=== PATIENT | female | born 1950 | race Caucasian/White ===

== ENCOUNTER 2023-09-14 06:20 | Inpatient (IN) | payer MEDICARE, SELFPAY ==
--- NOTE | 2023-08-19 09:44 | CM ---
Patient is scheduled for an elective R THR on 09/14/23. Spoke with patient prior to surgery via telephone. Patient had a R TKR at in 2017. Reintroduced role of Orthopedic Navigator. Patient reports that she lives alone in a two story home. There
is a one step to enter and a flight of steps to the second floor. There is a powder room on the mid level developer. She currently functions independently. She has a cane, two rolling walkers, raised toilet seat, grabber and firm cushion. She has had VN
services through [facility]. PCP is Christ Armstrong.
Discussed orthopedic program and post surgical plans. Reviewed anticipated length of stay and that goal is for her to return home at discharge. Also reviewed outpatient PT. Patient is in agreement with tentative plan but will not have transportation
for outpatient PT. She has a neighbor who can provide some support but won't have anyone staying with her.
Patient will complete online education.
Plan: Orthopedic Navigator will remain available to assist with the care of patient and will reassess discharge needs after surgery.
[2023-08-24 13:25] VITALS: BMI 25.3
[2023-08-24 13:44] LABS: Hematocrit 40.4 % (37.0-47.0); Hemoglobin 14.2 g/dL (12.0-16.0); Mean Corp Hgb Conc. 35.1 g/dL (33.0-37.0); Mean Corpuscular Hgb 33.3 pg (27.0-31.0); Mean Corpuscular Volume 94.6 fL (81.0-99.0); Mean Platelet Volume 7.9 fL (7.4-10.4); Platelet Count 318 10^3/uL (130-400); Red Blood Cell Count 4.27 10^6/uL (4.20-5.40); Red Cell Dist. Width 13.3 % (11.5-14.5); White Blood Cell Count 12.6 10^3/uL (4.8-10.8)
[2023-08-24 14:30] LABS: Glycohemoglobin (HgbA1c) 5.6 % (4.0-5.6)
[2023-08-24 15:40] VITALS: BMI 25.3
[2023-09-14] VITALS (21 sets, daily range): BP systolic 108–138; BP diastolic 52–78; PULSE 87; O2SAT 93
[2023-09-14] MEDS: CELEBREX 200 MG PO (07:51)
[2023-09-14] MEDS: TYLENOL 650 MG PO ×4 (07:51→23:34)
[2023-09-14] MEDS: VANCOCIN 200 IV ×2 (08:06→17:22)
[2023-09-14] MEDS: NORMOSOL-R 1000 IV (08:07)
[2023-09-14] MEDS: ULTRAM 50 MG PO ×2 (11:29→15:31)
[2023-09-14] MEDS: DILAUDID 0.25 MG IV ×2 (11:30→11:45)
[2023-09-14] MEDS: NSS 1000 IV (11:30)
--- NOTE | 2023-09-14 12:08 | W.PN.UPDATE ---
Update Note
Progress Note Update
R hip OA s/p R TABBY w/ Dr Barba 09/14/23
- s/p R TKA, 2017, by Dr Barba
DVT prophylaxis - ASA, b/l venous foot pumps
HTN - + parameters - monitor BP
GERD - resume Pepcid BID
MRSA + nasal screen - add IV Vanco in addition to IV Ancef for joint prophylaxis
- Will advise she continue nasal Mupirocin BID for 2 weeks post-surgery as incision heals
HLD
Osteoporosis
Chronic mild leukocytosis, asymptomatic
--- NOTE | 2023-09-14 13:15 | PTCARENOTE ---
received report from pacu, pt admitted to room 2109. pt oriented to room and unit. pt AAOX3. reports pain well controlled at this time. right hip aquacel CDI. Bilateral dp pulses palpable. PT/OT to see patient. pt updated on plan of care.
[2023-09-14] MEDS: NEURONTIN 200 MG PO ×2 (15:26→21:50)
[2023-09-14] MEDS: ANCEF 5 IV ×2 (15:26→23:34)
[2023-09-14] MEDS: TYLENOL PO (16:24)
[2023-09-14] MEDS: ASPIRIN 325 MG PO (17:22)
[2023-09-14] MEDS: DILAUDID 0.5 MG IV (17:27)
[2023-09-14] MEDS: COLACE 100 MG PO (20:39)
[2023-09-14] MEDS: SENOKOT 17.1999999999999993 MG PO (20:39)
[2023-09-14] MEDS: PEPCID 20 MG PO (20:39)
[2023-09-14] MEDS: BACTROBAN 2% OINTMENT 1 APPLIC NASAL (20:39)
[2023-09-14] MEDS: DECADRON 4 MG PO (20:40)
[2023-09-14] MEDS: ZOFRAN 4 MG IV (23:49)
[2023-09-15 02:59] VITALS: BP 118/60
[2023-09-15] MEDS: TYLENOL 650 MG PO ×2 (03:28→07:50)
[2023-09-15 06:38] VITALS: BP 123/66
[2023-09-15] MEDS: ASPIRIN 325 MG PO (07:49)
[2023-09-15] MEDS: ORETIC 12.5 MG PO (07:49)
[2023-09-15] MEDS: PEPCID 20 MG PO (07:50)
[2023-09-15] MEDS: BACTROBAN 2% OINTMENT 1 APPLIC NASAL (07:50)
[2023-09-15] MEDS: SENOKOT 17.1999999999999993 MG PO (07:50)
[2023-09-15] MEDS: NEURONTIN 200 MG PO (07:50)
[2023-09-15] MEDS: CRESTOR 20 MG PO (07:50)
[2023-09-15] MEDS: DECADRON 4 MG PO (07:50)
[2023-09-15] MEDS: MOBIC 15 MG PO (07:50)
[2023-09-15] MEDS: COLACE 100 MG PO (07:50)
--- NOTE | 2023-09-15 08:43 | CM ---
Addendum entered by Faustina Bray 09/15/23 10:05:
Patient did well in therapy. She has no concerns about going home.
Original Note:
Reviewed chart and held rounds with PT, OT and nursing. Patient admitted as planned for elective R THR. Met with patient at bedside. Confirmed information previously obtained for assessment. Also discussed discharge plans. The plan is for patient to
return home at discharge. She will have support from a neighbor but no one will stay with her. Reviewed VN services including start of care (tentatively 09/15), services to be ordered (PT, OT, SN) and frequency/duration of services. Options list
provided and PAC data reviewed. Patient selects [facility].
Patient has a rolling walker, raised toilet seat, grabber, long handled shoe horn and a cane at home.
VN referral was completed and sent to [facility] through [facility] with request for start of care on 09/15. Confirmation received of their ability to accept case. blood bank booking clerk to fax discharge instructions to [facility] when complete.
Patient will use [facility] pharmacy for discharge prescriptions.
[2023-09-15 09:00] VITALS: BP 119/69; PULSE 80; O2SAT 99
[2023-09-15 10:07] VITALS: BP 114/54; PULSE 75; O2SAT 99
--- NOTE | 2023-09-15 10:51 | W.PN.ORTHO ---
Today's Communication / Plan
-
D/c today since clinically stable, did well w/ both PT and OT.
Assessment
.
Distal Motor Intact: Yes
Dressing:
Clean, dry and intact.
Assessment:
R hip OA s/p R TABBY w/ Dr Barba 09/14/23
- s/p R TKA, 2017, by Dr Barba
DVT prophylaxis - ASA, b/l venous foot pumps
PONV - likely d/t intolerance to opioids - will Rx Compazine TID upon d/c
- Tramadol over Oxycodone or [place] prn
HTN - + parameters - BPs stable
GERD - resumed Pepcid BID
MRSA + nasal screen - added IV Vanco in addition to IV Ancef for joint prophylaxis
- Will advise she continue nasal Mupirocin BID for 2 weeks post-surgery as incision heals
HLD
Osteoporosis
Chronic mild leukocytosis, asymptomatic
Plan
.
Surgery / Date: R TABBY w/ Dr Barba 09/14/23
DVT Prophylaxis: Aspirin
Activity:
Out of bed.
PT/OT
Discharge Plan: Home w/ VN
Subjective
.
.:
Patient resting comfortably in her chair this AM.
R hip pain well controlled w/ current pain meds.
N/V overnight - relief provided w/ Zofran prn.
Denies any other new complaints.
Eager for potential d/c today.
Vital Signs and Labs
.
Vital Signs and Labs:
Lab Results
08/24/23 13:04
Temp Pulse Resp BP Pulse Ox
97.9 F 83 20 123/66 99
09/15/23 06:38 09/15/23 06:38 09/15/23 06:38 09/15/23 06:38 09/15/23 06:38
Non-invasive Hgb result: 11.8
Physical Exam
-
HEENT: No pallor, cyanosis, or jaundice. Throat clear.
NECK: Supple. No JVD.
RESPIRATORY: Lungs clear to auscultation.
CVS: S1, S2 normal. RRR.�
ABDOMEN: Soft, non-tender. No distension.
EXTREMITIES: Strength equal, no calf pain with palpation/dorsiflexion. Calves soft.
ELECTRICAL SOFTWARE ENGINEER: AOx3. No focal deficits. warp tension tester grossly intact
--- NOTE | 2023-09-15 11:07 | W.DS.TRANS ---
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
-
Discharge Instructions:
Sleep Apnea Risk Low
Discharge Diagnosis/Procedures R hip OA s/p R TABBY w/ Dr Barba 09/14/23
Diet Other diet
Additional Diets Diabetic carb controlled x1 week for wound
healing/infection prevention; then resume
regular diet.
Activity As tolerated,With Walker
Driving Restrictions Not until seen by your Dr
Bathing Restrictions OK to Shower
Other Services VN,PT,OT
Wound Care Dressing to be removed 1 week post-surgery.
Instructions:
Stand-Alone Forms: Total Hip/Knee Replacement D/C
Changes to Home Medications: Yes
Discharge Medications:
DC Medications w/original date entered in [employer]
ascorbic acid (vitamin C) 500 mg tablet (Vitamin C) 1,200 mg PO DAILY Supplement 04/19/17
multivitamin (One Daily Multivitamin tablet) 1 ea PO DAILY Supplement 04/19/17
Citracal 630 mg PO DAILY Supplement 08/22/23
Fish Oil-Vit D3 750 mg PO BID Supplement 08/22/23
Probiotic 1 cap PO HS Supplement 08/22/23
famotidine 20 mg tablet 20 mg PO BID Gastrointestinal Issue 08/22/23
rosuvastatin 20 mg tablet (Crestor) 20 mg PO DAILY High Cholesterol 08/22/23
zoledronic acid 5 mg/100 mL in mannitol 5 %-water intravenous piggybck (Reclast) 5 mg IV [id number] Bisphosphonate Derivative;CANCER 08/22/23
acetaminophen 650 mg tablet,extended release (Tylenol Arthritis Pain) 1,300 mg (2 x 650 mg) PO Q8H #30 tabs 09/15/23
aspirin 325 mg tablet 325 mg PO DAILY #30 tabs 09/15/23
dexamethasone 4 mg tablet 4 mg PO BID #5 tabs 09/15/23
docusate sodium 100 mg capsule 100 mg PO BID #30 caps 09/15/23
gabapentin 100 mg capsule 200 mg (2 x 100 mg) PO TID 5 days #30 caps 09/15/23
hydrochlorothiazide 12.5 mg tablet 12.5 mg PO DAILY Fluid Retention/Swelling #0 tabs 09/15/23
meloxicam 15 mg tablet 15 mg PO DAILY #14 tabs 09/15/23
mupirocin 2 % topical ointment 1 applic intranasal BID #1 tube 09/15/23
prochlorperazine maleate 5 mg tablet 5 mg PO TID #30 tabs 09/15/23
sennosides 8.6 mg tablet (Senna Laxative) 17.2 mg (2 x 8.6 mg) PO BID #30 tabs 09/15/23
tramadol 50 mg tablet 50 - 100 mg (1 - 2 x 50 mg) PO Q6H PRN moderate-severe pain #30 tabs 09/15/23
Home Medication Changes
acetaminophen 650 mg tablet,extended release (Tylenol Arthritis Pain) 1,300 mg (2 x 650 mg) PO Q8H #30 tabs 09/15/23
aspirin 325 mg tablet 325 mg PO DAILY #30 tabs 09/15/23
dexamethasone 4 mg tablet 4 mg PO BID #5 tabs 09/15/23
docusate sodium 100 mg capsule 100 mg PO BID #30 caps 09/15/23
gabapentin 100 mg capsule 200 mg (2 x 100 mg) PO TID 5 days #30 caps 09/15/23
meloxicam 15 mg tablet 15 mg PO DAILY #14 tabs 09/15/23
prochlorperazine maleate 5 mg tablet 5 mg PO TID #30 tabs 09/15/23
sennosides 8.6 mg tablet (Senna Laxative) 17.2 mg (2 x 8.6 mg) PO BID #30 tabs 09/15/23
tramadol 50 mg tablet 50 - 100 mg (1 - 2 x 50 mg) PO Q6H PRN moderate-severe pain #30 tabs 09/15/23
Pending Results: No
[2023-09-15 11:35] VITALS: BP 132/60
[2023-09-15] MEDS: TYLENOL PO (12:17)
== END 2023-09-15 13:22 | disposition home health service (06) | DRG 470 ==
LOC: 2 SOUTH 06:20
PROVIDERS: ADMITTING PHYSICIAN Orthopaedic Surgery; FAMILY PHYSICIAN Family Medicine
PROC: 0SR9039 Replacement of Right Hip Joint with Ceramic Synthetic Substitute, Cemented, Open Approach (ICD-10-PCS; 2023-09-14)
DX: M16.11 Unilateral primary osteoarthritis, right hip (principal); I10 Essential (primary) hypertension; K21.9 Gastro-esophageal reflux disease without esophagitis; E78.5 Hyperlipidemia, unspecified; Z22.322 Carrier or suspected carrier of Methicillin resistant Staphylococcus aureus
CPT/HCPCS: 36415; 73502; 83036; 85027; 87070; 87147; 93005; 97110; 97116; 97162; 97166; 97530; 97535; C1713; C1776

== ENCOUNTER 2023-10-10 15:14 | Inpatient (IN) | payer MEDICARE, OTHER, SELFPAY ==
[2023-10-10] VITALS (26 sets, daily range): BP systolic 111–240; BP diastolic 51–193; BMI 24.4
--- NOTE | 2023-10-10 12:44 | ED.GENMED ---
History of Present Illness
General
Chief Complaint: Musculo-Skeletal Complaint
Source: patient and other (Best friend)
Time Seen by Provider: 10/10/23 12:30
Travel History
Have you had any contact with someone who has COVID-19?: No
Do you have any symptoms of coronavirus? Fever > 100 degrees, chills, cough, shortness of breath, sore throat, loss of taste or smell, muscle aches, or headache?: No
History of Present Illness
History of Present Illness:
This patient is a 73-year-old female presents emergency department after suspected dislocation of her right hip. She had a total hip done by Dr. Barba on September 13 which was uneventful. She has been recovering well at home. She lives in a
two-story house. She went upstairs at approximately 9:40 AM to take a shower, says that she bent down ever so slightly and felt a 'pop' and that it 'went out'. She went down to the ground but denies hitting her head or loss of consciousness. She
denies preceding symptoms such as chest pain, palpitations, etc. Unfortunately, she did not have access to a phone and was alone at the time. She gradually crawled downstairs and called for help. She presents to the ER now with come hip
discomfort, otherwise no complaints. No neck pain, headache, dizziness, chest pain, shortness of breath, or other complaints.
Past History
Past History
ED Past Medical History: Other (osteoarthritis, frequent UTIs)
ED Past Surgical History: Orthopedic
Social History
Tobacco: Non-smoker
Alcohol: None
Drug: None
Living: alone
Phy Exam
Physical Exam
Physical Exam:
GENERAL: Alert , in no apparent distress
EYE: pupils equal and reactive, no photophobia
NECK: Supple, no significant adenopathy.
ENT: o/p clr, mmm, no signs of head or facial injury noted.
CARDIAC: Regular rate and rhythm .
LUNGS: Clear breath sounds bilaterally, no acute respiratory distress, no wheezes/rales/rhonchi
ABDOMEN: Soft, without focal tenderness, no r/g, no cvat
NEUROLOGICAL: Alert and oriented, no focal neuro deficits
SKIN: Warm and dry, skin intact.
MUSCULOSKELETAL: No edema, well perfused. Resolving bruising noted about R lower leg. R le shortened and internal (sl) rotated, warm, well perfused, nl pulses, sesnation intact. Hip incision c/d/i and well healed
PSYCH: Normal and appropriate interaction.
Course
Orders/Labs/Results
Orders:
Orders
10/10/23 12:31
Hip, Right 2-3 Views [CR Hip - RT w/wo Pel 2-3 Vw*] Urgent
Comment:
Reason For Exam: 'pop' sound
Include a pelvis x-ray?: Yes
10/10/23 12:42
Morphine Sulfate 4 mg IV NOW STA
Ondansetron Injectable [Zofran] 4 mg IV NOW STA
10/10/23 12:43
Morphine Sulfate 4 mg .ROUTE .STK-MED ONE
Ondansetron Injectable [Zofran] 4 mg .ROUTE .STK-MED ONE
10/10/23 13:20
Propofol [Diprivan] 20 ml .ROUTE .STK-MED
10/10/23 13:55
Propofol [Diprivan] 20 ml .ROUTE .STK-MED
10/10/23 14:11
Hip, Right 1 View [CR Hip - RT without Pel 1 Vw] Urgent
Comment:
Reason For Exam: hip relocation
10/10/23 14:26
Dexamethasone Sod Phosphate [Decadron] 20 mg .ROUTE .STK-MED ONE
Fentanyl Citrate/Pf [Sublimaze] 100 mcg .ROUTE .STK-MED ONE
Lidocaine HCl/Pf [Xylocaine-Mpf 1% Vial] 50 mg .ROUTE .STK-MED ONE
Midazolam HCl [Versed] 2 mg .ROUTE .STK-MED ONE
Ondansetron Injectable [Zofran] 4 mg .ROUTE .STK-MED ONE
Propofol [Diprivan] 20 ml .ROUTE .STK-MED
Rocuronium Chauncey [Rocuronium] 50 mg .ROUTE .STK-MED ONE
10/10/23 14:39
Ketamine 5 ml .ROUTE .STK-MED
Vital Signs
Initial and Last Documented VS:
Initial Vital Signs
Temp Pulse Resp BP Pulse Ox
98.1 F 83 18 153/83 98
10/10/23 12:07 10/10/23 12:07 10/10/23 12:07 10/10/23 12:07 10/10/23 12:07
Last Documented Vital Signs
Temp Pulse Resp BP Pulse Ox
97.8 F 74 16 115/89 99
10/10/23 13:26 10/10/23 14:20 10/10/23 14:20 10/10/23 14:20 10/10/23 14:15
*Critical Care Note
Total Time (30-74mins, 75-104mins- exclusive of procedures): Not Applicable
Update Note
Update Note:
Patient presents to the Emergency Department with ___right hip suspected dislocation/'pop'
Number and Complexity of Problems Addressed at the Encounter
� Chronic conditions affecting care:
� Acute Exacerbation and/or Progression of Chronic Illness:
� Differential Diagnosis includes: Dislocation, fracture, strain, etc.
Amount and/or Complexity of Data to be Reviewed and Analyzed
� I performed an independent evaluation of and my interpretation is:
EKG:
CT:
Xrays:R hip dislocation
Laboratory Studies:
Other:
� Review of other/old records reveals:
� Clinical information was obtained by an independent historian:
� Prescriptions/Medications Considered but not given:
� Further testing considered but not performed:
Risk of Complications and/or Morbidity or Mortality of Patient Management
� Social determinants of health affecting care:
� Discussion with other providers (PCP, Hospitalists, Consultants, etc):
� Escalation of care including admission/observation vs risk of discharge considered:Text to Dr Villegas, confirm no contraindic to reduction by me in context of recent surgery. Reduction under procedural sedation performed by
myself with JOSE Burks...unable to do so. D/w Dr Villegas, he came to ED and attemptd reduction and also unsuccessful...pt brought to OR.
ED Attending Note
-
Portions of this chart may have been created with voice recognition software.� Occasional wrong word or��sound alike� substitutions may have occurred due to the inherent limitations of voice recognition software.
Discharge Plan
Departure
Patient Disposition: OR
Presentation/result/management discussed w/ accepting MD/DO: daniela
Condition: Good
Discharge Problem:
Dislocation, hip
Interventions
Interventions:
*Risk Screen - Suicide Last Done: 10/10/23 12:07
*General Assessment Last Done: 10/10/23 12:07
*Neglect/Abuse Screening Last Done: 10/10/23 12:07
ED- Fall Risk Assessment Last Done: 10/10/23 14:26
*ED COVID-19 Vaccine History Last Done: 10/10/23 12:07
*Nursing Disposition Last Done: 10/10/23 14:26
ED-Musculoskeletal Assessment Last Done: 10/10/23 12:07
Discharge Date and Time
Discharge Date/Time: 10/10/23 14:27
[2023-10-10] MEDS: MORPHINE SULFATE 4 MG IV (12:45)
[2023-10-10] MEDS: ZOFRAN 4 MG IV (12:45)
--- NOTE | 2023-10-10 15:40 | HPS.HSE ---
Addendum entered and electronically signed by Sanjiv Guadalupe MD 10/11/23 08:26:
Allergies
Allergy/AdvReac Type Severity Reaction Status Date / Time
adhesive tape Allergy blisters Verified 10/10/23 15:59
latex Allergy blisters Verified 10/10/23 12:09
meperidine [From Demerol] Allergy Severe Verified 10/10/23 15:59
Nausea/Vomiting
Home Medications
ascorbic acid (vitamin C) 500 mg tablet (Vitamin C) 1,200 mg PO DAILY Supplement 04/19/17
multivitamin (One Daily Multivitamin tablet) 1 ea PO DAILY Supplement 04/19/17
Citracal 630 mg PO DAILY Supplement 08/22/23
Fish Oil-Vit D3 750 mg PO BID Supplement 08/22/23
famotidine 20 mg tablet 20 mg PO BID Gastrointestinal Issue 08/22/23
rosuvastatin 20 mg tablet (Crestor) 20 mg PO DAILY High Cholesterol 08/22/23
zoledronic acid 5 mg/100 mL in mannitol 5 %-water intravenous piggybck (Reclast) 5 mg IV [id number] Bisphosphonate Derivative;CANCER 08/22/23
acetaminophen 650 mg tablet,extended release (Tylenol Arthritis Pain) 1,300 mg (2 x 650 mg) PO Q8H #30 tabs 09/15/23
aspirin 325 mg tablet 325 mg PO DAILY #30 tabs 09/15/23
dexamethasone 4 mg tablet 4 mg PO BID #5 tabs 09/15/23
hydrochlorothiazide 12.5 mg tablet 12.5 mg PO DAILY Fluid Retention/Swelling #0 tabs 09/15/23
meloxicam 15 mg tablet 15 mg PO DAILY #14 tabs 09/15/23
mupirocin 2 % topical ointment 1 applic intranasal BID #1 tube 09/15/23
tramadol 50 mg tablet 50 - 100 mg (1 - 2 x 50 mg) PO Q6H PRN moderate-severe pain #30 tabs 09/15/23
Original Note:
Family Physician
-
Family Physician: Christ Armstrong
Chief Complaint
-
R hip pain
History of Present Illness
73-year-old female who recently underwent left hip arthroplasty who is presenting from home and states today she had been now when she was about to go take a shower and ever so felt a pop and then it went out. Patient states she was on the ground
due to severe pain. Patient denies hitting her head or loss of consciousness syncopal episode. No chest pain or shortness of breath. Denies any palpitation prior to the event. Subsequently after which she went/crawled downstairs as her cell
phone was on the first floor. Patient called her neighbor who called 911. In the ER hip reduction was unsuccessful. Subsequently Dr. Villegas took patient to the OR under anesthesia for closed reduction. During the OR she was noted to have a
right periprosthetic fracture and thus will need to be admitted and undergo revision on 10/11.
Medical History
Past Medical History
Past Medical History: Reports Other
Additional Past Medical History:
Osteoarthritis status post right total knee and R hip arthroplasty Dr. Barba
Osteoporosis.
Gastroesophageal reflux disease.
Hypertension.
Hyperlipidemia.
Past Surgical History: Reports Other
Additional Past Surgical History:
Right total knee arthroplasty.
Right rotator cuff repair.
Left breast implantation.
Right knee chondroplasty.
Bunionectomy.
Ovary excision.
Breast biopsy.
Cataract.
Social History
Tobacco: Non-smoker
Drug: None
Living: Alone
Family History
Family History: Not pertinent
Allergies / Home Medications
Allergies reflects when Allergies were last updated in [employer].
Home Medications with original date entered in [employer]
Allergy/Medication List:
Medications on admission are unable to be verified or confirmed at this time.
Review of Systems
-
History Source: Patient
A 12 point ROS was completed and negative except as noted: Yes
Physical Exam
Vital Signs
Vital Signs
Temp Pulse Resp BP Pulse Ox
97.4 F 80 13 130/77 99
10/10/23 15:10 10/10/23 15:30 10/10/23 15:30 10/10/23 15:30 10/10/23 15:30
Physical Exam
General: Well Developed, Well Nourished and No Apparent Distress
HEENT: NormoCephalic, Moist mucous membranes and Atraumatic
Respiratory: Clear
Cardiac: S1/S2 and Regular Rhythm; No Murmur or Rub
GI: Soft, Non Tender, Non Distended and Normal Bowel Sounds; No Organomegaly
Rectal: Deferred by Provider
Musculoskeletal: No Clubbing, No Cyanosis and No Edema
Skin: No Rash
Neuro: Awake and Nonfocal/grossly intact
Psych: Calm
Impression/Plan
-
#Right periprosthetic fracture
#Right hip dislocation
#Right hip arthroplasty on 09/14/[address] Barba
Plan for surgery on 10/11. N.p.o. past midnight
Pain control
Bedrest for now
Therapy per orthopedic
DVT prophylaxis
Bowel regimen
CT right lower extremity ordered per orthopedic
Orthopedic consultation
#GERD
Continue with Pepcid
#Primary hypertension
Restart HCTZ depending on labs
DVT prophylaxis SCDs for now
d/w with orthopedic
I spent a total of 78 minutes with the patient or on the floor. More than 50% of this time involved counseling and coordination of care.
Home med rec pending
[2023-10-10] MEDS: DILAUDID 0.5 MG IV (15:53)
--- NOTE | 2023-10-10 16:44 | PTCARENOTE ---
Patient D/C to cat scan
[2023-10-10] MEDS: TYLENOL 650 MG PO ×2 (17:34→20:30)
[2023-10-10] MEDS: DILAUDID 0.25 MG IV ×2 (17:34→20:56)
--- NOTE | 2023-10-10 17:45 | PTCARENOTE ---
Pt arrived to 2S in bed. Full assessment completed. PRN dilaudid provided for c/o 9/10 R hip pain. RLE with + PD, warm, pink, +1 edema to R hip noted. Pure wick in place. Bed locked and in the lowest position, safety maintained. Oriented to room and
call singh.
[2023-10-10 18:15] LABS: % Basophils 0.5 % (0-2); % Eosinophils 0.9 % (0-6); % Immature Granulocytes 0.1 % (0-0.5); % Lymphocytes 19.2 % (20.5-51.1); % Monocytes 9.6 % (1.7-9.3); % Neutrophils 69.7 % (42.2-75.2); Absolute Eosinophils 0.1 10^3/uL (0-0.7); Absolute Lymphocytes 1.7 10^3/uL (1.2-3.4); Absolute Monocytes 0.8 10^3/uL (0.1-0.6); Hematocrit 35.8 % (37.0-47.0); Mean Corp Hgb Conc. 33.5 g/dL (33.0-37.0); Mean Corpuscular Hgb 32.5 pg (27.0-31.0); Mean Platelet Volume 7.8 fL (7.4-10.4); Nucleated Red Blood Cells % 0 %; Platelet Count 328 10^3/uL (130-400); Red Blood Cell Count 3.69 10^6/uL (4.20-5.40); Red Cell Dist. Width 13.6 % (11.5-14.5); White Blood Cell Count 8.6 10^3/uL (4.8-10.8)
[2023-10-10] MEDS: ROXICODONE 5 MG PO (18:34)
[2023-10-10 19:06] LABS: Blood Urea Nitrogen 13 mg/dl (7-17); Calcium 9.3 mg/dl (8.4-10.2); Carbon Dioxide 24 mmol/L (22-30); Chloride 102 mmol/L (98-107); Estimated Creatinine Clearance 72 ml/min; Glucose 99 mg/dl (70-99); Potassium 4.5 mmol/L (3.5-5.1); Sodium 134 mmol/L (135-145); eGFR > 60.00
[2023-10-10] MEDS: SENOKOT 17.1999999999999993 MG PO (20:55)
[2023-10-10] MEDS: COLACE 100 MG PO (20:55)
[2023-10-11] MEDS: TYLENOL PO (01:00)
[2023-10-11] MEDS: DILAUDID 0.25 MG IV ×2 (03:33→07:59)
[2023-10-11] MEDS: TYLENOL 650 MG PO ×5 (03:33→20:49)
[2023-10-11 07:00] VITALS: BP 118/61
[2023-10-11 07:03] LABS: Hepatitis C Antibody Negative (Negative)
--- NOTE | 2023-10-11 07:32 | CON.ORTHO ---
Consultation
-
Date/Time Consultation Requested: 10/10/23
Date/Time Consultation Performed: 10/11/23 @ 7:15am
Requesting Provider: ER physician
Performing Provider: Yamel Toscano PA-C for González Barba MD
Reason for Consultation: right periprosthetic hip fracture, right TABBY dislocation
Consultation - Orthopedics
History
HPI: 73yo female admitted to [facility] for right hip pain. She underwent right TABBY on 09/14/[address] Barba. She had been recovering well at home. Yesterday morning, she was in the shower when she bent slightly and felt a pop in her
right hip followed by immediate pain. She was unable to bear weight and lowered herself to the floor. She denies falling. She was able to scoot herself across the floor to get to her phone to call for help. EMS brought her to [place] [facility] for
further evaluation. Xrays revealed right TABBY dislocation. Reduction was attempted in the ED and unsuccessful. She was taken to the operating room where second reduction attempted. Post reduction xrays and right lower extremity CT scan reveal
continues right TABBY dislocation as well as periprosthetic femur fracture. This morning, she endorses pain about the right hip and thigh. She is taking pain medications regularly. She denies numbness/tingling. She is not on any blood thinners.
PAST MEDICAL HISTORY: osteoarthritis, GERD, HTN, HLD
PAST SURGICAL HISTORY: Right TABBY 09/14/[address] Barba, right TKA, right rotator cuff repair, bunionectomy, ovary excision, breast biopsy, cataract
SOCIAL HISTORY: denies tobacco, alcohol
FAMILY HISTORY: Non contributory
REVIEW OF SYSTEMS: 12 point review of systems obtained and negative except those mentioned in the HPI
Allergies / Home Medications
Allergy/AdvReac Type Severity Reaction Status Date / Time
adhesive tape Allergy blisters Verified 10/10/23 15:59
latex Allergy blisters Verified 10/10/23 12:09
meperidine [From Demerol] Allergy Severe Verified 10/10/23 15:59
Nausea/Vomiting
�Medication �Instructions �Recorded
ascorbic acid (vitamin C) 500 mg 1,200 mg PO DAILY Supplement 04/19/17
tablet (Vitamin C)
multivitamin (One Daily 1 ea PO DAILY Supplement 04/19/17
Multivitamin tablet)
Citracal 630 mg PO DAILY Supplement 08/22/23
Fish Oil-Vit D3 750 mg PO BID Supplement 08/22/23
Probiotic 1 cap PO HS Supplement 08/22/23
famotidine 20 mg tablet 20 mg PO BID Gastrointestinal Issue 08/22/23
rosuvastatin 20 mg tablet (Crestor) 20 mg PO DAILY High Cholesterol 08/22/23
zoledronic acid 5 mg/100 mL in 5 mg IV [id number] Bisphosphonate 08/22/23
mannitol 5 %-water intravenous Derivative;CANCER
piggybck (Reclast)
acetaminophen 650 mg 1,300 mg (2 x 650 mg) PO Q8H #30 09/15/23
tablet,extended release (Tylenol tabs
Arthritis Pain)
aspirin 325 mg tablet 325 mg PO DAILY #30 tabs 09/15/23
dexamethasone 4 mg tablet 4 mg PO BID #5 tabs 09/15/23
docusate sodium 100 mg capsule 100 mg PO BID #30 caps 09/15/23
gabapentin 100 mg capsule 200 mg (2 x 100 mg) PO TID 5 days 09/15/23
#30 caps
hydrochlorothiazide 12.5 mg tablet 12.5 mg PO DAILY Fluid 09/15/23
Retention/Swelling #0 tabs
meloxicam 15 mg tablet 15 mg PO DAILY #14 tabs 09/15/23
mupirocin 2 % topical ointment 1 applic intranasal BID #1 tube 09/15/23
prochlorperazine maleate 5 mg 5 mg PO TID #30 tabs 09/15/23
tablet
sennosides 8.6 mg tablet (Senna 17.2 mg (2 x 8.6 mg) PO BID #30 09/15/23
Laxative) tabs
tramadol 50 mg tablet 50 - 100 mg (1 - 2 x 50 mg) PO Q6H 09/15/23
PRN moderate-severe pain #30 tabs
Vital Signs / Lab Results
Temp Pulse Resp BP Pulse Ox
98.3 F 95 17 111/51 98
10/10/23 23:45 10/10/23 23:45 10/10/23 23:45 10/10/23 23:45 10/10/23 23:45
10/10/23 17:45
10/10/23 17:45
RADIOGRAPHIC FINDINGS:
Intraop Images: Superior dislocation of the femoral prosthesis relative to the acetabular cup. Fracture of the greater trochanter with mild displacement.
Right Lower Extremity CT Scan: Vertically oriented fracture through the base of the right greater trochanter, with approximately 9 mm posterolateral displacement. Subtle nondisplaced fracture involving the posterior column. Femoral prosthesis
dislocated superior and lateral to the acetabular cup. The femoral prosthesis head is projecting in an anterolateral direction. It is uncertain if this represents rotation of the femoral component, femoral rotation, or a combination of both. The
acetabular cup remains in place and appears intact.
PHYSICAL EXAM:
General: no acute distress
HEENT: NCAT, sclera anicteric, normal hearing
Heart: No JVD
Lungs: Normal work of breathing on room air
MSK: Focused exam of right hip. Right leg shortened and internally rotated. +Tenderness about the hip and thigh. ROM deferred. Calf soft and nontender. Able to dorsiflex/plantarflex the ankle. NVI distally
Assessment / Plan
ASSESSMENT: Right total hip dislocation, right periprosthetic fracture
PLAN: Unfortunately, Ms. Echeverria has sustained a right prosthetic hip dislocation. This was unsucessfully reduced. She also has a right periprosthetic fracture. Will require revision right total hip arthroplasty. Discussed the operative and
nonoperative options. The risks, benefits, and complications were reviewed. She has agreed to proceed with surgery. Will plan for right revision total hip arthroplasty tomorrow, 10/12/23, under the direction of Dr. Barba. Surgical and blood consent
obtained and placed on chart. She will need to be NPO after midnight. Ancef and TXA oracle ascp consultant to OR. Type and screen ordered today. She is to remain on bedrest for now. Continue with pain control as needed. She will require PT evaluation
postoperatively. Will continue to follow along.
[2023-10-11] MEDS: COLACE 100 MG PO ×2 (08:02→20:49)
[2023-10-11] MEDS: SENOKOT 17.1999999999999993 MG PO ×2 (08:02→20:49)
[2023-10-11] MEDS: ROXICODONE 5 MG PO (10:08)
--- NOTE | 2023-10-11 10:32 | CM ---
Reviewed the chart notes and spoke with the patient at the bedside. Patient had THR 09/14/2023 and was discharged to home with [facility]. The patient anticipated going to OR tomorrow for right revision total hip arthroplasty tomorrow. [facility]
closed the patient last week. The patient resides alone in a two story home with one step to enter. The patient has a rolling walker, cane, built in shower seat, raised toilet seat, and a grabber. The patient has not been to a SNF/rehab in the
past. CM continues to be available to patient/family and is monitoring medical plan for needs at discharge.
Plan: Discharge plans will depend on the patient's progress.
[2023-10-11] MEDS: DILAUDID 0.5 MG IV ×2 (12:19→20:48)
[2023-10-11] MEDS: COMPAZINE 10 MG IV ×2 (12:19→20:49)
--- NOTE | 2023-10-11 12:27 | W.PN.HOSP.TC ---
Today's Communication/Plan
-
N.p.o. past midnight for OR tomorrow
Pain control
Assessment / Plan
Assessment / Plan
#Right periprosthetic fracture
#Right hip dislocation
#Right hip arthroplasty on 09/14/[address] Barba
Plan for surgery on 10/11. N.p.o. past midnight
Pain control
Bedrest for now
Therapy per orthopedic post op
DVT prophylaxis
Bowel regimen
CT right lower extremity ordered per orthopedic-vertically oriented fracture through the base of the right greater trochanter, with approximately 9 mm posterior lateral displacement. Subtle nondisplaced fracture involving the posterior column.
Femoral prosthesis dislocated superior and lateral to the acetabular cup. The femoral prosthesis head is projecting in an anterolateral direction. It is uncertain if this represents rotation of the femoral component, femoral rotation, or a
combination of both. The acetabular cup remains in place and appears intact.
#GERD
Continue with Pepcid
#Primary hypertension
Hold HCTZ for now
DVT prophylaxis SCDs for now and hold asa per orthopedic
d/w with orthopedic
Anticipated Discharge: > 48 hours
Subjective/Interval History
-
Date of Service: October 11, 2023
states of severe R hip pain
Objective Data
-
Vital Signs:
Vital Signs
Temp Pulse Resp BP Pulse Ox
98.0 F 83 18 118/61 98
10/11/23 07:00 10/11/23 07:00 10/11/23 07:00 10/11/23 07:00 10/11/23 08:00
I&O
10/10/23 10/11/23 10/12/23
06:59 06:59 06:59
Intake Total 870 / 870
Output Total 675 / 675
Balance 195 / 195
Physical Exam
-
General: Well Developed, Appears in Distress and Pain
HEENT: Normocephalic, Atraumatic and Moist Mucous Membranes
Respiratory: Clear to Auscultation
Cardiac: Regular Rhythm and S1/S2; Negative Murmur, Rub or Gallop
GI: Soft, Nontender, Nondistended and Normal Bowel Sounds; Negative Organomegaly
Rectal: Deferred by Provider
Musculoskeletal: No Clubbing, No Cyanosis and No Edema
Skin: Negative Rash
Neuro: Awake and Nonfocal/Grossly Intact
Psych: Calm
[2023-10-11 14:27] VITALS: BP 137/69
[2023-10-11 15:00] VITALS: BP 137/69
[2023-10-11] MEDS: BACTROBAN 2% OINTMENT 1 APPLIC NASAL (20:49)
[2023-10-11] MEDS: PEPCID 20 MG PO (20:49)
[2023-10-11 23:23] VITALS: BP 120/65
[2023-10-12] VITALS (16 sets, daily range): BP systolic 94–163; BP diastolic 47–73; PULSE 93; O2SAT 96
[2023-10-12] MEDS: TYLENOL 650 MG PO ×6 (00:56→23:33)
[2023-10-12] MEDS: DILAUDID 0.5 MG IV ×3 (00:56→09:04)
[2023-10-12] MEDS: DULCOLAX 10 MG RECTAL (02:00)
[2023-10-12] MEDS: COMPAZINE 10 MG IV (04:31)
[2023-10-12] MEDS: CRESTOR 20 MG PO (07:14)
[2023-10-12] MEDS: THERAGRAN 1 TABLET PO (07:14)
[2023-10-12] MEDS: COLACE 100 MG PO (07:14)
[2023-10-12] MEDS: OSCAL CAL 500 500 MG PO (07:14)
[2023-10-12] MEDS: VITAMIN C 1250 MG PO (07:14)
[2023-10-12] MEDS: PEPCID 20 MG PO ×2 (07:15→19:58)
[2023-10-12] MEDS: SENOKOT 17.1999999999999993 MG PO (07:15)
[2023-10-12] MEDS: BACTROBAN 2% OINTMENT 1 APPLIC NASAL ×2 (07:16→19:58)
--- NOTE | 2023-10-12 07:50 | W.PN.UPDATE ---
Update Note
Progress Note Update
Ms. Echeverria is resting comfortably in bed this morning. She does endorse aching pain about the hip, but otherwise reports she is doing well.
Directed exam of the right hip reveals hip externally rotated and shortened. Generalized edema about the right thigh. No tenderness to palpation about the hip at present. Thigh soft and compressible. Calf soft and nontender. NVID.
Patient is scheduled to proceed with revision total hip arthroplasty today under the direction of Dr. Barba. NPO until surgery. NWB to RLE until surgery. Pain control per primary. Antibiotic and irrigation ordered. T+S completed.
--- NOTE | 2023-10-12 10:21 | PTCARENOTE ---
Patient to OR in bed for planned surgical procedure
--- NOTE | 2023-10-12 10:55 | W.PN.HOSP.TC ---
Today's Communication/Plan
-
OR today
post op care per ortho
pt/ot post op
labs in am
Assessment / Plan
Assessment / Plan
#Right periprosthetic fracture
#Right hip dislocation
#Right hip arthroplasty on 09/14/[address] Barba
Plan for surgery today.
Pain control
Bedrest for now
Therapy per orthopedic post op
DVT prophylaxis post op per ortho.
Bowel regimen
CT right lower extremity ordered per orthopedic-vertically oriented fracture through the base of the right greater trochanter, with approximately 9 mm posterior lateral displacement. Subtle nondisplaced fracture involving the posterior column.
Femoral prosthesis dislocated superior and lateral to the acetabular cup. The femoral prosthesis head is projecting in an anterolateral direction. It is uncertain if this represents rotation of the femoral component, femoral rotation, or a
combination of both. The acetabular cup remains in place and appears intact.
#GERD
Continue with Pepcid
#Primary hypertension
restart HCTZ in am depending on bp
DVT prophylaxis SCDs for now and hold asa per orthopedic
Anticipated Discharge: > 48 hours
Subjective/Interval History
-
Date of Service: October 12, 2023
States of R hip pain
awaiting OR
Objective Data
-
Vital Signs:
Vital Signs
Temp Pulse Resp BP Pulse Ox
97.8 F 94 18 163/56 97
10/12/23 07:00 10/12/23 07:00 10/12/23 07:00 10/12/23 07:00 10/12/23 08:00
I&O
10/11/23 10/12/23 10/13/23
06:59 06:59 06:59
Intake Total 870 / 870 600 / 600
Output Total 675 / 675 1450 / 1450
Balance 195 / 195 -850 / -850
Physical Exam
-
General: Well Developed, Appears in Distress and Pain
HEENT: Normocephalic, Atraumatic and Moist Mucous Membranes
Respiratory: Clear to Auscultation
Cardiac: Regular Rhythm and S1/S2; Negative Murmur, Rub or Gallop
GI: Soft, Nontender, Nondistended and Normal Bowel Sounds; Negative Organomegaly
Rectal: Deferred by Provider
Musculoskeletal: No Clubbing, No Cyanosis and Other (R hip swelling. )
Skin: Negative Rash
Neuro: Awake, AO x 3 and Nonfocal/Grossly Intact
Psych: Calm
--- NOTE | 2023-10-12 11:31 | CM ---
Reviewed the chart notes. Patient to OR today for right revision total hip arthroplasty. CM continues to be available to patient/family and is monitoring medical plan for needs at discharge.
Plan: Discharge plans will depend on the patient's progress. VN order received.
[2023-10-12] MEDS: TYLENOL PO (11:54)
[2023-10-12] MEDS: NORMOSOL-R 1000 IV (14:09)
[2023-10-12] MEDS: ROXICODONE 5 MG PO (14:13)
--- NOTE | 2023-10-12 14:28 | PTCARENOTE ---
Patient received from PACU in bed; Surgical site assessed with [employer]; Two aquacell's in place to the right hip, C/D/I; Patient denies numbness and/or tingling to bilateral lower extremities; Right pedal pulse +1, left pedal pulse +2; Right hip
edema +1; IVF infusing; Call singh within reach; Bed in lowest position, wheels locked; Assessment ongoing
[2023-10-12] MEDS: VANCOCIN 200 IV (14:58)
[2023-10-12] MEDS: ASPIRIN 325 MG PO (17:00)
[2023-10-12] MEDS: ANCEF 5 IV (19:57)
[2023-10-12] MEDS: SENOKOT PO ×2 (19:58→20:26)
[2023-10-12] MEDS: DECADRON 4 MG PO (19:58)
[2023-10-12] MEDS: COLACE PO ×2 (19:58→20:26)
[2023-10-13] VITALS (7 sets, daily range): BP systolic 130–151; BP diastolic 65–76; PULSE 100–101; O2SAT 99
[2023-10-13] MEDS: ROXICODONE 5 MG PO ×2 (00:57→20:22)
[2023-10-13] MEDS: ANCEF 5 IV (04:35)
[2023-10-13] MEDS: TYLENOL 650 MG PO ×5 (04:36→20:21)
[2023-10-13 05:15] LABS: % Basophils 0.2 % (0-2); % Immature Granulocytes 0.4 % (0-0.5); % Lymphocytes 5.7 % (20.5-51.1); % Monocytes 6.9 % (1.7-9.3); % Neutrophils 86.8 % (42.2-75.2); Absolute Immature Granulocytes 0.1 10^3/uL (0-0.05); Absolute Lymphocytes 0.7 10^3/uL (1.2-3.4); Absolute Monocytes 0.9 10^3/uL (0.1-0.6); Absolute Neutrophils 10.9 10^3/uL (1.4-6.5); Hematocrit 28.2 % (37.0-47.0); Hemoglobin 9.8 g/dL (12.0-16.0); Mean Corp Hgb Conc. 34.8 g/dL (33.0-37.0); Mean Corpuscular Hgb 32.6 pg (27.0-31.0); Mean Corpuscular Volume 93.7 fL (81.0-99.0); Mean Platelet Volume 7.8 fL (7.4-10.4); Nucleated Red Blood Cells % 0 %; Platelet Count 314 10^3/uL (130-400); Red Blood Cell Count 3.01 10^6/uL (4.20-5.40); Red Cell Dist. Width 13.3 % (11.5-14.5); White Blood Cell Count 12.5 10^3/uL (4.8-10.8)
[2023-10-13 06:27] LABS: Blood Urea Nitrogen 13 mg/dl (7-17); Carbon Dioxide 25 mmol/L (22-30); Chloride 106 mmol/L (98-107); Estimated Creatinine Clearance 72 ml/min; Glucose 146 mg/dl (70-99); Potassium 4.1 mmol/L (3.5-5.1); Sodium 133 mmol/L (135-145); eGFR > 60.00
--- NOTE | 2023-10-13 07:32 | W.PN.ORTHO ---
Today's Communication / Plan
-
PT/OT
Partial weightbearing right lower extremity
Abductor hip precautions
Aspirin DVT prophy
Skin clip removal 2 weeks postop
Assessment
.
Distal Motor Intact: Yes
Dressing:
Clean, dry and intact.
Plan
.
Surgery / Date: Revision R TABBY 10/11 [facility]
DVT Prophylaxis: Aspirin
Activity:
Out of bed.
PT/OT
Discharge Plan: Home w/ VN
Subjective
.
.:
Patient resting comfortably.
Vital Signs and Labs
.
Vital Signs and Labs:
Lab Results
10/13/23 05:00
10/13/23 05:00
Temp Pulse Resp BP Pulse Ox
98.4 F 97 16 135/70 97
10/13/23 03:00 10/13/23 03:00 10/13/23 03:00 10/13/23 03:00 10/13/23 03:00
Non-invasive Hgb result: 10.6
--- NOTE | 2023-10-13 08:15 | PTCARENOTE ---
Pt found standing at the bedside without an assistive device. Pt asked to sit and hip precautions/ activity restrictions reviewed with pt. Pt verbalized understanding. RN began to wheel med cart to the side in order to assist pt OOB to the chair. Pt
found to be standing up while RN moving cart. Pt again directed to sit and wait for assistance. Bed alarm and chair alarm placed for pt safety. Pt refused teaching stating ' i don't need that'. Activity restrictions and safety precautions again
reviewed with pt. Pt assisted to hip chair, gait unsteady and pt not maintaining partial weight bearing status. Pt reminded of weight bearing status and stated ' i know'. Care remains ongoing at this time. Bed alarm and chair alarm in place.
[2023-10-13] MEDS: PEPCID 20 MG PO ×2 (08:23→20:21)
[2023-10-13] MEDS: THERAGRAN 1 TABLET PO (08:23)
[2023-10-13] MEDS: CELEBREX 200 MG PO (08:23)
[2023-10-13] MEDS: DECADRON 4 MG PO ×2 (08:23→20:21)
[2023-10-13] MEDS: CRESTOR 20 MG PO (08:23)
[2023-10-13] MEDS: ASPIRIN 325 MG PO (08:23)
[2023-10-13] MEDS: BACTROBAN 2% OINTMENT 1 APPLIC NASAL ×2 (08:24→20:21)
[2023-10-13] MEDS: VITAMIN C 1250 MG PO (08:24)
[2023-10-13] MEDS: OSCAL CAL 500 500 MG PO (08:24)
[2023-10-13] MEDS: SENOKOT 17.1999999999999993 MG PO ×2 (08:24→20:21)
[2023-10-13] MEDS: COLACE 100 MG PO ×2 (08:24→20:21)
[2023-10-13] MEDS: ROXICODONE 10 MG PO (08:36)
--- NOTE | 2023-10-13 10:26 | W.PN.HOSP.TC ---
Today's Communication/Plan
-
Hold HCTZ
Trend CBC
PT and OT
Assessment / Plan
Assessment / Plan
#Right periprosthetic fracture
#Right hip dislocation
#Right hip arthroplasty on 09/14/[address] Barba
Pain control
Therapy per orthopedic post op
DVT prophylaxis post op per ortho-asa 325mg
Bowel regimen
CT right lower extremity ordered per orthopedic-vertically oriented fracture through the base of the right greater trochanter, with approximately 9 mm posterior lateral displacement. Subtle nondisplaced fracture involving the posterior column.
Femoral prosthesis dislocated superior and lateral to the acetabular cup. The femoral prosthesis head is projecting in an anterolateral direction. It is uncertain if this represents rotation of the femoral component, femoral rotation, or a
combination of both. The acetabular cup remains in place and appears intact.
Status post right hip plate fixation of intertrochanteric fracture, right total hip femoral component revision, entire femoral component on 10/[address] Barba.
Continue with fall precautions and weight bearing status as recommended by orthopedic
# Acute blood loss anemia secondary to surgery versus mild dilutional component
Trend CBC for now. Transfuse for hemoglobin less than 7
#GERD
Continue with Pepcid
#Primary hypertension
hold HCTZ
#Mild hyponatremia
trend for now
PT/OT-May require rehab
DVT prophylaxis asa
Anticipated Discharge: 24 - 48 hours
Subjective/Interval History
-
Date of Service: October 13, 2023
States of pain in the right hip site
Currently sitting in chair
Objective Data
-
Labs:
Laboratory Results
10/13/23
05:00
WBC 12.5 H
Hgb 9.8 L
Hct 28.2 L
Plt Count 314
Sodium 133 L
Potassium 4.1
Chloride 106
Carbon Dioxide 25
BUN 13
Creatinine 0.5 L
Glucose 146 H
Calcium 9.0
Vital Signs:
Vital Signs
Temp Pulse Resp BP Pulse Ox
98 F 88 16 138/65 98
10/13/23 07:35 10/13/23 07:35 10/13/23 07:35 10/13/23 07:35 10/13/23 07:35
I&O
10/12/23 10/13/23 10/14/23
06:59 06:59 06:59
Intake Total 600 / 600 1120 / 1120
Output Total 1450 / 1450 300 / 300
Balance -850 / -850 820 / 820
Physical Exam
-
General: Well Developed, Appears in Distress and Pain
HEENT: Normocephalic, Atraumatic and Moist Mucous Membranes
Respiratory: Clear to Auscultation
Cardiac: Regular Rhythm and S1/S2; Negative Murmur, Rub or Gallop
GI: Soft, Nontender, Nondistended and Normal Bowel Sounds; Negative Organomegaly
Rectal: Deferred by Provider
Musculoskeletal: No Clubbing, No Cyanosis and Other (R hip swelling. )
Skin: Negative Rash
Neuro: Awake, AO x 3 and Nonfocal/Grossly Intact
Psych: Calm
Data Reviewed
-
Total Time Spent with Patient (in minutes): 55
--- NOTE | 2023-10-13 11:50 | CM ---
Addendum entered by Ene Coronado 10/13/23 14:29:
[facility] has offered a bed for Kelli Wood at discharge. Pt will need to arrive prior to 6PM on day of discharge.
The phone number for report is: [phone]. Please fax DC paperwork to: [phone]
Original Note:
Referral sent via [facility] to [facility] for short term SNF rehab. Pt has Medicare insurance as primary with no need for precertification. Patient and her friend, Bing Chaves ([phone]) are both agreeable to transfer to [facility] when
medically stable. MD believes 24-48 hours. CM will follow to finalize transportation when ready for discharge.
[2023-10-14] MEDS: TYLENOL PO ×2 (00:04→04:44)
[2023-10-14] MEDS: ROXICODONE 10 MG PO ×2 (01:33→08:18)
[2023-10-14] MEDS: VITAMIN C 1250 MG PO (08:16)
[2023-10-14] MEDS: COLACE 100 MG PO (08:16)
[2023-10-14] MEDS: CELEBREX 200 MG PO (08:16)
[2023-10-14] MEDS: SENOKOT 17.1999999999999993 MG PO (08:18)
[2023-10-14] MEDS: DECADRON 4 MG PO (08:18)
[2023-10-14] MEDS: PEPCID 20 MG PO (08:18)
[2023-10-14] MEDS: OSCAL CAL 500 500 MG PO (08:18)
[2023-10-14] MEDS: ASPIRIN 325 MG PO (08:18)
[2023-10-14] MEDS: CRESTOR 20 MG PO (08:18)
--- NOTE | 2023-10-14 08:18 | W.PN.ORTHO ---
Today's Communication / Plan
-
PT/OT
Partial weightbearing right lower extremity
Abductor hip precautions
Aspirin DVT prophy
Skin clip removal 2 weeks postop
Assessment
.
Distal Motor Intact: Yes
Dressing:
Clean, dry and intact.
Plan
.
Surgery / Date: Revision R TABBY 10/11 [facility]
Activity:
Out of bed.
PT/OT
Subjective
.
.:
Patient resting comfortably.
Vital Signs and Labs
.
Vital Signs and Labs:
Temp Pulse Resp BP Pulse Ox
98.5 F 95 16 135/74 99
10/13/23 23:15 10/13/23 23:15 10/13/23 23:15 10/13/23 23:15 10/13/23 23:15
Non-invasive Hgb result: 10.3
[2023-10-14] MEDS: TYLENOL 650 MG PO ×2 (08:19→12:04)
[2023-10-14] MEDS: THERAGRAN 1 TABLET PO (08:20)
[2023-10-14] MEDS: BACTROBAN 2% OINTMENT 1 APPLIC NASAL (08:20)
[2023-10-14 08:21] LABS: Blood Urea Nitrogen 21 mg/dl (7-17); Calcium 9.4 mg/dl (8.4-10.2); Carbon Dioxide 25 mmol/L (22-30); Chloride 104 mmol/L (98-107); Estimated Creatinine Clearance 72 ml/min; Glucose 95 mg/dl (70-99); Potassium 4.2 mmol/L (3.5-5.1); Sodium 137 mmol/L (135-145); eGFR > 60.00
[2023-10-14 08:31] VITALS: BP 127/69
--- NOTE | 2023-10-14 10:38 | W.PN.HOSP.TC ---
Today's Communication/Plan
-
await placement
labs pending
Assessment / Plan
Assessment / Plan
#Right periprosthetic fracture
#Right hip dislocation
#Right hip arthroplasty on 09/14/[address] Barba
Pain control
Therapy per orthopedic post op
DVT prophylaxis post op per ortho-asa 325mg
Bowel regimen
CT right lower extremity ordered per orthopedic-vertically oriented fracture through the base of the right greater trochanter, with approximately 9 mm posterior lateral displacement. Subtle nondisplaced fracture involving the posterior column.
Femoral prosthesis dislocated superior and lateral to the acetabular cup. The femoral prosthesis head is projecting in an anterolateral direction. It is uncertain if this represents rotation of the femoral component, femoral rotation, or a
combination of both. The acetabular cup remains in place and appears intact.
Status post right hip plate fixation of intertrochanteric fracture, right total hip femoral component revision, entire femoral component on 10/[address] Barba.
Continue with fall precautions and weight bearing status as recommended by orthopedic
# Acute blood loss anemia secondary to surgery versus mild dilutional component
Trend CBC for now. Transfuse for hemoglobin less than 7. Labs pending.
#GERD
Continue with Pepcid
#Primary hypertension
restart HCTZ with hold parameters
#Mild hyponatremia
resolved.
PT/OT-SNF pending placement.
DVT prophylaxis asa
Anticipated Discharge: Today
Subjective/Interval History
-
Date of Service: October 14, 2023
states of hip pain-alleviates with oxy
Objective Data
-
Labs:
Laboratory Results
10/14/23 10/14/23
06:13 07:41
WBC Pending
Hgb Pending
Hct Pending
Plt Count Pending
Sodium Cancelled 137
Potassium Cancelled 4.2
Chloride Cancelled 104
Carbon Dioxide Cancelled 25
BUN Cancelled 21 H
Creatinine Cancelled 0.6
Glucose Cancelled 95
Calcium Cancelled 9.4
Vital Signs:
Vital Signs
Temp Pulse Resp BP Pulse Ox
97.9 F 97 16 127/69 96
10/14/23 08:31 10/14/23 08:31 10/14/23 08:31 10/14/23 08:31 10/14/23 08:31
I&O
10/13/23 10/14/23 10/15/23
06:59 06:59 06:59
Intake Total 1120 / 1120 1280 / 1280
Output Total 300 / 300
Balance 820 / 820 1280 / 1280
Physical Exam
-
General: Well Developed, Appears in Distress and Pain
HEENT: Normocephalic, Atraumatic and Moist Mucous Membranes
Respiratory: Clear to Auscultation
Cardiac: Regular Rhythm and S1/S2; Negative Murmur, Rub or Gallop
GI: Soft, Nontender, Nondistended and Normal Bowel Sounds; Negative Organomegaly
Rectal: Deferred by Provider
Musculoskeletal: No Clubbing, No Cyanosis and Other (R hip swelling. Aquacell dressing noted. )
Skin: Negative Rash
Neuro: Awake, AO x 3 and Nonfocal/Grossly Intact
Psych: Calm
--- NOTE | 2023-10-14 11:06 | CM ---
Reviewed the chart notes and spoke with the patient at the bedside regarding IMM and discharge today to [facility] SNF/rehab. CM confirmed bed available today.
Plan: Discharge to [facility] SNF/rehab today.
Call report to: [phone]
Fax report to: [phone]
Medical necessity and transport form on chart.
[2023-10-14 12:03] LABS: % Basophils 0.3 % (0-2); % Eosinophils 0.5 % (0-6); % Immature Granulocytes 1.1 % (0-0.5); % Lymphocytes 6.5 % (20.5-51.1); % Monocytes 7.6 % (1.7-9.3); Absolute Eosinophils 0.1 10^3/uL (0-0.7); Absolute Immature Granulocytes 0.1 10^3/uL (0-0.05); Absolute Lymphocytes 0.9 10^3/uL (1.2-3.4); Absolute Neutrophils 11.2 10^3/uL (1.4-6.5); Hematocrit 30.9 % (37.0-47.0); Hemoglobin 10.6 g/dL (12.0-16.0); Mean Corp Hgb Conc. 34.3 g/dL (33.0-37.0); Mean Corpuscular Hgb 32.5 pg (27.0-31.0); Mean Corpuscular Volume 94.8 fL (81.0-99.0); Mean Platelet Volume 7.7 fL (7.4-10.4); Nucleated Red Blood Cells % 0 %; Platelet Count 379 10^3/uL (130-400); Red Blood Cell Count 3.26 10^6/uL (4.20-5.40); Red Cell Dist. Width 13.6 % (11.5-14.5); White Blood Cell Count 13.3 10^3/uL (4.8-10.8)
--- NOTE | 2023-10-14 12:19 | W.DCSUMMARY ---
Discharge Summary
Discharge Data
Date of Admission: 10/10/23
Date of Discharge: 10/14/23
-
Pending Results: No
Hospital Course
73-year-old female past medical history of osteoarthritis, hypertension, GERD who is presenting from home for severe right hip pain after bending forward. Patient with right hip dislocation and attempt was made in the ER. Reduction was
unsuccessful in ER. Patient was taken to the operating room by orthopedic and under sedation it was attempted. In the operating room it was found that patient has right greater trochanteric fracture and her right femoral stem was noted to piston
in and out the femoral shaft. Based on this operative finding per orthopedic patient will need to go to operating room for open reduction with femoral stem revision. Patient was admitted to medicine service. Subsequently patient underwent to the
operating room on 10/12/[address] Barba and underwent Right total hip femoral component revision, entire femoral component and Right hip plate fixation of intertrochanteric fracture. Postop patient was started on aspirin for DVT prophylaxis.
Pain was controlled with narcotics. Patient was seen by physical and Occupational Therapy. Hemoglobin was trended and requiring transfusion. Patient with leukocytosis which was seems stress secondary to postop. Patient afebrile. No cough. No
dysuria no diarrhea. Repeat labs recommended by primary doctor and or [facility] facility. Patient went to follow-up outpatient for orthopedic postop follow-up.
Discharge Plan
-
Patient Disposition: Retirement/SNF
Discharge Diagnosis/Procedures: Right periprosthetic fracture
Right hip dislocation
Right hip arthroplasty on 09/14/[address] Barba
Status post right hip plate fixation of intertrochanteric fracture, right total hip femoral component revision, entire femoral component on 10/[address] Barba.
Acute blood loss anemia secondary to surgery versus mild dilutional component
Condition: Fair
Diet: Regular
Activity: With assistance and As tolerated
Driving Restrictions: Not until seen by your Dr
Blood Work: cbc and bmp in 1 week via primary doctor.
Referrals:
Christ Armstrong DO [Family Provider] - in less than 1 week
Star Barba MD [Active] - in two weeks
Prescriptions:
New
oxycodone 10 mg Tablet
10 mg PO TIDPRN PRN (Reason: severe pain) Qty: 10 0RF
Continued
multivitamin [One Daily Multivitamin] 1 EACH tablet
1 ea PO DAILY
ascorbic acid (vitamin C) [Vitamin C] 500 MG tablet
1,200 mg PO DAILY
famotidine 20 mg Tablet
20 mg PO BID
rosuvastatin [Crestor] 20 mg Tablet
20 mg PO DAILY
zoledronic pmgn-owiimvgj-cogay [Reclast] 5 mg/100 mL Piggyback
5 mg IV [id number]
Citracal
630 mg PO DAILY
Fish Oil-Vit D3
750 mg PO BID
Hold Instructions: Resume on 09/21/23.
aspirin 325 mg Tablet
325 mg PO DAILY Qty: 30 0RF
Rx Instructions:
Take daily x4 weeks for blood clot prevention.
acetaminophen [Tylenol Arthritis Pain] 650 mg tablet extended release
1,300 mg PO Q8H Qty: 30 0RF
Rx Instructions:
DO NOT exceed >4000 mg daily.
mupirocin 2 % ointment
1 applic intranasal BID Qty: 1 0RF
Rx Instructions:
Continue twice a day for 2 weeks post-surgery.
tramadol 50 mg tablet
50 - 100 mg PO Q6H PRN (Reason: moderate pain) Qty: 30 0RF
Rx Instructions:
1 tab for moderate pain, 2 if severe.
Dx total joint
dexamethasone 4 mg Tablet
4 mg PO BID Qty: 2 0RF
Rx Instructions:
Take with food. 2 doses left
hydrochlorothiazide 12.5 mg Tablet
12.5 mg PO DAILY Qty: 0 0RF
Rx Instructions:
HOLD IF systolic blood pressure <130
Discontinued
meloxicam 15 mg Tablet
15 mg PO DAILY Qty: 14 0RF
Rx Instructions:
Take with food.
DO NOT take within 2 hours of Aspirin.
Discharge Orders:
Discharge Patient (As Directed); Ordered 10/14/23
Ordered By: Sanjiv Guadalupe
Discharge Date and Time
Print Language: SLOVAK
[2023-10-14 13:27] VITALS: BP 131/75
== END 2023-10-14 13:30 | DRG 467 ==
LOC: 2 SOUTH 15:14
PROVIDERS: ADMITTING PHYSICIAN Specialist; ATTENDING PHYSICIAN Hospitalist; EMERGENCY PHYSICIAN Emergency Medicine; FAMILY PHYSICIAN Family Medicine; OTHER PHYSICIAN Orthopaedic Surgery
PROC: 0SW90JZ Revision of Synthetic Substitute in Right Hip Joint, Open Approach (ICD-10-PCS; 2023-10-12)
DX: T84.020A Dislocation of internal right hip prosthesis, initial encounter (principal); D62 Acute posthemorrhagic anemia; E87.1 Hypo-osmolality and hyponatremia; M97.01XA Periprosthetic fracture around internal prosthetic right hip joint, initial encounter; Y79.2 Prosthetic and other implants, materials and accessory orthopedic devices associated with adverse incidents; K21.9 Gastro-esophageal reflux disease without esophagitis; I10 Essential (primary) hypertension; Z79.82 Long term (current) use of aspirin
CPT/HCPCS: 73501; 73502; 73700; 76000; 80048; 85025; 86803; 86850; 86900; 86901; 86920; 96374; 96375; 97116; 97163; 97167; 97530; 97535; 99285